=== PATIENT | female | born 1960 | race Caucasian/White ===

== ENCOUNTER 2017-01-12 10:45 | Outpatient (CLI) | payer BC ==
[~2017-01-12] VITALS: Ht 174 cm; Wt 68.9 kg
--- OUTSIDE RECORDS SUMMARY | 2017-01-12 10:48 | XMS REPORT | Clinical Summary ---
Author Author Admin, E Organization [facility] Address Unknown Phone Allergies, Adverse Reactions, Alerts Allergy Name Reaction Description Start Date Severity Status Provider SULFA Moderate Active Angela Pool PA PENICILLIN Moderate Active Angela Pool PA Conditions or Problems Problem Name Problem Code Onset Date Status Entry Date Provider Comment Standard Description Annotate HYPOTHYROIDISM 244.9 Active Angela Pool PA Unspecified hypothyroidism PELVIC PAIN, ACUTE 789.09 Resolved Angela Pool PA Abdominal pain, other specified site; multiple sites ROUTINE GYNECOLOGICAL EXAMINATION V72.31 Resolved Angela Pool PA Routine gynecological examination INSOMNIA 780.52 Active Angela Pool PA Insomnia, unspecified ELBOW PAIN, LEFT 719.42 Resolved Angela Pool PA Pain in joint involving upper arm OTHER SCREENING BREAST EXAMINATION V76.19 Resolved Angela Pool PA Other screening breast examination DYSURIA 788.1 Resolved Angela Pool PA Dysuria SEBORRHEIC KERATOSIS, INFLAMED 702.11 Active Angela Pool PA Inflamed seborrheic keratosis LEUKOPENIA, MILD 288.50 Resolved Angela Pool PA Leukocytopenia, unspecified Other dermatitis due to solar radiation 692.79 Active Angela Pool PA Other dermatitis due to solar radiation PELVIC PAIN, ACUTE ICD-789.09 Inactive Angela Pool PA ROUTINE GYNECOLOGICAL EXAMINATION ICD-V72.31 Inactive Angela Pool PA ELBOW PAIN, LEFT ICD-719.42 Inactive Angela Pool PA OTHER SCREENING BREAST EXAMINATION ICD-V76.19 Inactive Angela Pool PA DYSURIA ICD-788.1 Inactive Angela Pool PA LEUKOPENIA, MILD ICD-288.50 Inactive Angela Pool PA Medication List Medication Instructions Start Date Stop Date Generic Name NDC Status Provider Patient Instruction RETIN-A 0.025 % CREA apply to face at bedtime as needed TRETINOIN 90344148326 Active Angela [place] KIRBY Active EPIQUIN MICRO 4 % CREA apply at bedtime until desired effect obtained. Wear sunscreen HYDROQUINONE MICROSPHERES 51125692340 [facility] Active CIPRO 250 MG TABS take one tab po bid x 3 days CIPROFLOXACIN HCL 98790943788 No Longer Active [facility] PA Active SYNTHROID 175 MCG TABS take one tab po daily LEVOTHYROXINE SODIUM 49205943117 Active [facility] KIRBY Active MOBIC 15 MG TABS take one tab po daily MELOXICAM 90296641207 No Longer Active [facility] KIRBY Active RESTORIL 15 MG CAPS TAKE 1-2 CAPSULES AT H.S TEMAZEPAM 74131175645 Active Rehan Padilla MD Active MOBIC 15 MG TABS take one tab po daily MOBIC 15 MG TABS 803731 MELOXICAM Inactive CIPRO 250 MG TABS take one tab po bid x 3 days CIPRO 250 MG TABS 542449 CIPROFLOXACIN HCL Inactive Vital Signs Date Name Value Unit Range Description blood pressure, diastolic 59 mm[Hg] BP gilbert blood pressure, systolic 119 mm[Hg] BP sys height E&M 152 [in_us] Bdy height pulse rate E&M 66 /min Heart rate temperature E&M 97.8 [degF] Body temperature blood pressure, diastolic 78 mm[Hg] BP gilbert blood pressure, systolic 110 mm[Hg] BP sys height E&M 69 [in_us] Bdy height pulse rate E&M 70 /min Heart rate temperature E&M 98.3 [degF] Body temperature weight E&M 155 [lb_av] Weight Measured blood pressure, diastolic 76 mm[Hg] BP gilbert blood pressure, systolic 118 mm[Hg] BP sys height E&M 69 [in_us] Bdy height pulse rate E&M 69 /min Heart rate temperature E&M 97.2 [degF] Body temperature weight E&M 153 [lb_av] Weight Measured Diagnostic Results Date Name Value Unit Range Description Lab Report: CBC, Comp. Metabolic Panel, Thyroid Stimulating Hormone (L), ... - Chemistry sodium, serum 134 mmol/L 385-397 6550/06/14 potassium, serum 4.6 mmol/L 3.5-5.2 chloride, serum 100 mmol/L 98-107 carbon dioxide, venous blood 30.5 mmol/L 21.0-32.0 blood glucose 73 mg/dL 65-110 urea nitrogen, blood 14 mg/dL 7-18 creatinine, serum 1.00 mg/dL 0.60-1.30 alanine aminotransferase (SGPT), serum 38 U/L 12-78 aspartate aminotransferase (SGOT), serum 30 U/L 15-37 alkaline phosphatase, serum 100 U/L 50-136 calcium, serum 9.2 mg/dL 8.5-10.1 bilirubin, serum, total 0.36 mg/dL 0.00-1.00 thyroid stimulating hormone, serum 4410 u[iU]/mL Units converted. See lab report for original value. thyroxine, serum, free 0.96 ng/dL 0.76-1.46 Lab Report: CBC, Comp. Metabolic Panel, Thyroid Stimulating Hormone (L), ... - Hematology leukocyte count, blood 4.2 UL 10*3/mm3 4.6-10.2 erythrocyte (RBC) count 4.43 UL 10*6/mm3 4.04-5.48 hemoglobin, blood 13.4 g/dL 12.0-16.0 hematocrit, blood 41.4 % 36.0-46.0 mean corpuscular volume, RBC 93 fL 80-97 mean corpuscular hemoglobin, RBC 30.2 pg 27.0-31.2 mean corpuscular hemoglobin concentration, RBC 32.3 G/DL % 31.8- 35.4 red blood cell distribution width 14.5 % 11.6-14.8 platelet count 132 UL 10*3/mm3 142-424 Lab Report: CBC, Thyroid Stimulating Hormone (L), Free Thyroxine (L) - Chemistry thyroid stimulating hormone, serum 120 u[iU]/mL Units converted. See lab report for original value. thyroxine, serum, free 1.31 ng/dL 0.76-1.46 Lab Report: CBC, Thyroid Stimulating Hormone (L), Free Thyroxine (L) - Hematology leukocyte count, blood 4.9 10^3/MM^3 10*3/mm3 4.6-10.2 erythrocyte (RBC) count 4.18 10^6/MM^3 10*6/mm3 4.04-5.48 hemoglobin, blood 12.8 g/dL 12.0-16.0 hematocrit, blood 39.6 % 36.0-46.0 mean corpuscular volume, RBC 95 fL 80-97 mean corpuscular hemoglobin, RBC 30.7 pg 27.0-31.2 mean corpuscular hemoglobin concentration, RBC 32.4 G/DL % 31.8- 35.4 red blood cell distribution width 14.1 % 11.6-14.8 platelet count 311 10^3/MM^3 10*3/mm3 142-424 Office Visit: Annual GERIATRICIAN Exam - Chemistry RBC, urine, dipstick negative protein, total urine random negative mg/dL Office Visit: Annual GERIATRICIAN Exam - Urinalysis pH, urine, semiquantitative 5 specific gravity, urine 1.000 urinalysis, routine Clean Catch ketones, urine, by test strip negative bilirubin, urine negative glucose, urine, semiquantitative negative urine color yellow appearance, urine clear leukocyte esterase, urine, by dipstick negative nitrite, urine, semiquantitative negative urobilinogen, urine, semiquantitative (dipstick) 0.2 protein, urine, semiquantitative (dipstick) negative Encounters Code Encounter Date Provider Facility CPT-64628 Level 3 Est. Patient 10:16:55 CDT Angela Carson [facility] CPT-08539 Level 3 Est. Patient 09:21:59 [employer] Angela Mota [facility] CPT-13026 Level 3 Est. Patient 15:33:24 CDT Angela Mota [facility] Procedures Code Procedure Name Date Entry Date Standard Description CPT-18332 Spec Collection and Handling Fee 08:18:56 CDT CPT-77115 Venipuncture Draw Fee 08:18:56 CDT CPT-Cryo Cryotherapy 08:45:05 CDT CPT-02338 Spec Collection and Handling Fee 08:45:05 CDT CPT-32801 Venipuncture Draw Fee 08:45:05 CDT CPT-28135 Urine Dip (Floor Use Only) 08:45:05 CDT CPT-PV Prev. Care Visit 08:45:05 CDT CPT-19766 Venipuncture Draw Fee 09:30:34 CDT CPT-88717 Spec Collection and Handling Fee 09:30:34 CDT CPT-25326 Prv Med Est Pt 40-64yrs 09:30:34 CDT
[2017-01-12] MEDS ORDERED: ASCO-262 PO (11:01)
[2017-01-12] MEDS ORDERED: TEMA15CA PO (11:01)
[2017-01-12] MEDS ORDERED: CYAN250010 PO (11:01)
[2017-01-12] MEDS ORDERED: CHOL3000 PO (11:01)
[2017-01-12] MEDS ORDERED: LEVO112T55 PO (11:01)
[2017-01-12] MEDS ORDERED: POTA2TAB15 PO (11:01)
== END 2017-01-12 11:03 ==
LOC: PREOP 10:45
PROVIDERS: ATTEND Internal Medicine
DX: Z01.818 Encounter for other preprocedural examination (principal); Z12.11 Encounter for screening for malignant neoplasm of colon; K21.9 Gastro-esophageal reflux disease without esophagitis

== ENCOUNTER 2017-01-13 07:00 | Day surgery (SDC) | payer BC ==
[~2017-01-13] VITALS: Ht 174 cm; Wt 68.9 kg
[~2017-01-13 07:00] MED LIST: ASCO-262 PO; CHOL3000 PO; CYAN250010 PO; LEVO112T55 PO; POTA2TAB15 PO; TEMA15CA PO
--- NOTE | 2017-01-13 07:22 | HISTORY AND PHYSICAL ---
DICTATING PHYSICIAN: Dr. Maurice DATE OF ADMISSION: 01/13/2017 Mrs. Ac is a 56-year-old white female referred by Dr. Becker. She is referred for screening colonoscopy. She is deemed to be of higher than average risk as she reports grandmother had colon cancer diagnosed in her 70s. She also requests EGD evaluation as for the past 3 months she has been requiring daily antacid therapy for heartburn symptoms, 2 to 3 tabs daily several hours after meals. She denies nighttime symptoms. She denies melena or bright red blood per rectum. She reports that she exercises regularly and that her weight has been stable. There have been no medication changes. She has a distant past history of smoking, quit 22 years ago with less than a 10 pack-year history. She only reports occasional alcohol intake and only moderate drinking when she does. PAST MEDICAL HISTORY: 1. Significant for follicular carcinoma of thyroid diagnosed in 1989. She is status post thyroidectomy and she also underwent I-131 ablation. 2. She had a right oophorectomy which turned out to be benign adenoma. Parents are still living she believes. One she believes has had colon polyps in the 70s with one grandmother who had colon cancer in her 70s. She is not aware of any other family history of malignancy. SOCIAL HISTORY: She works for [employer] in [employer] department with the above smoking and drinking history. MEDICATIONS: 1. She takes L-thyroxine 112 mcg daily. 2. Temazepam 15 mg at bedtime p.r.n. insomnia. 3. Multiple vitamins daily. 4. OTC potassium gluconate 550 mg. 5. Vitamin D 3000 units daily. 6. Vitamin C 500 mg daily. 7. B12 100 mcg daily ALLERGIES: She reports allergies involving rash to PENICILLIN and SULFA. PHYSICAL EXAMINATION: Reveals normal weight white female at 155 pounds. Blood pressure 118/78. HEENT EXAMINATION: Unremarkable. She is a Mallampati class II oropharyngeal configuration. NECK: Reveals no JVD, adenopathy or bruits. CHEST: Clear. CV: Reveals regular rate and rhythm without murmur, S3 or S4. ABDOMEN: Soft, supple without masses, organomegaly or tenderness. EXTREMITIES: Reveal no cyanosis, clubbing, or edema. ASSESSMENT: The patient was set-up for screening colonoscopy and diagnostic EGD due to history of reflux on 01/13. Prep instructions with the Silver-prep kit were given and questions were answered. I thank you for the referral was pleasant lady. Sincerely, Chai Maurice Job ID: [id number] Dictated Date: 01/10/2017 19:41:00 Anesthesiologist Date: 01/11/2017 09:24:20/[email or web address]
[2017-01-13] MEDS ORDERED: NALOXONE 0.4 MG/ML 1 ML (NARCAN) VIAL IVP PRN (07:45)
[2017-01-13] MEDS ORDERED: FLUMAZENIL (ROMAZICON) 0.1 MG/ML 5 ML VIAL INJ PRN (07:45)
[2017-01-13] MEDS ORDERED: HURRICAINE EXT TUBE (BENZOCAINE) XX PRN (07:45)
[2017-01-13] MEDS ORDERED: 1/2 NS IV SOLUTION 1,000 ML IV STA (07:45)
[2017-01-13 08:01] VITALS: BP 115/92
--- NOTE | 2017-01-13 08:12 | Pre-Op Note & Conscious Sedat ---
Pre-Operative Progress Note H&P Reviewed The H&P was reviewed, patient examined and no changes noted. Date H&P Reviewed: Jan 13, 2017 Time H&P Reviewed: 08:11 Conscious Sedation Pre-Proced ASA Class: 1 Airway Mallampati Classification: ([place] appropriate class) I. II. III, IV Lungs Heart ASA score ASA 1: a normal healthy patient ASA 2: a patient with a mild systemic disease (mid diabetes, controlled hypertension, obesity ASA 3: a patient with a severe systemic disease that limits activity (angina , COPD, prior Myocardial infarction) ASA 4: a patient with an incapacitating disease that is a constant threat to life (CHF, renal failure) ASA 5: a moribund patient not expected to survive 24 hrs. (ruptured aneurysm) ASA 6: a declared brain patient whose organs are being harvested. For emergent operations, add the letter E after the classification Grade 2 Sedation Plan: Analgesia, Amnesia, Plan communicated to team members, Discussed options with patient/fam, Discussed risks with patient/fam Note The patient is an appropriate candidate to undergo the planned procedure, sedation, and anesthesia. The patient immediately re-assessed prior to indication. OMAR ROBLES MD Jan 13, 2017 08:12
[2017-01-13] MEDS ORDERED: LIDOCAINE JELLY 2% (XYLOCAINE) 5 ML TUBE ONE (08:52)
[2017-01-13] MEDS ORDERED: MIDAZOLAM 2 MG/2 ML (VERSED) VIAL ONE ×4 (08:52→09:32)
[2017-01-13] MEDS ORDERED: fentaNYL INJECTION 100 MCG/2 ML AMP ONE ×2 (08:52)
[2017-01-13] MEDS: fentaNYL INJECTION 100 MCG/2 ML AMP IVP PRN ×3 (09:00→09:31)
[2017-01-13] MEDS: MIDAZOLAM 2 MG/2 ML (VERSED) VIAL IVP PRN ×4 (09:15→09:50)
[2017-01-13] MEDS: LIDOCAINE JELLY 2% (XYLOCAINE) 5 ML TUBE MM PRN ×2 (09:20→09:52)
[2017-01-13] MEDS ORDERED: HURRICAINE EXT TUBE (BENZOCAINE) ONE (09:43)
[2017-01-13] MEDS ORDERED: ONDANSETRON 4 MG/2 ML (SDV) Z0FRAN ONE (10:02)
[2017-01-13 10:20] VITALS: BP_SYST 112; BP_DIAS 76; BP_DIAS 78
[2017-01-13 10:50] VITALS: BP 118/76
[2017-01-13 12:00] VITALS: BP 118/76
[2017-01-13 12:55] VITALS: BP 118/72
--- NOTE | 2017-01-15 22:40 | PROCEDURE REPORT ---
PROCEDURE PHYSICIAN: OMAR ROBLES DATE OF PROCEDURE: 01/13/2017 COLONOSCOPY AND EGD SUMMARY: REQUESTING PHYSICIAN: Dr. Becker The patient underwent screening colonoscopy and diagnostic EGD. The patient reports that for the past 3 or 4 months she has been requiring antacid usage 2 to 3 times daily for reflux sounding symptoms throughout the day. She predominantly she will have nighttime symptoms if she eats too close to bedtime. COLONOSCOPY: The patient was placed in left lateral decubitus position. Prior to undergoing colonoscopy, digital rectal evaluation was performed. Anal sphincter tone was normal and the perianal reflex was intact. No digital abnormalities were noted with digital inspection of the anal canal or distal rectal vault. The colonoscope was then inserted into the rectum and under direct visualization, advanced to the cecum. The cecum was identified by identification of the ileocecal valve and cecal strap. Photographic documentation was obtained. Careful inspection was made as the colonoscope was withdrawn. FINDINGS: There was no evidence for internal or external hemorrhoids and the rectum was unremarkable. Present in the proximal sigmoid colon, was a diminutive hyperplastic appearing polyp that was biopsied and ablated, and submitted for histopathology with no subsequent blood loss. No evidence for diverticular disease was noted. The descending colon, splenic flexure, transverse colon, hepatic flexure, ascending colon and cecum were unremarkable with no evidence for neoplasia being identified. ASSESSMENT: One diminutive hyperplastic appearing polyp was biopsied and ablated noted in the proximal sigmoid colon. There was no subsequent blood loss. The patient was reassured. Advocation for consideration for repeat screening colonoscopy in 10 years was discussed. We then proceeded with upper endoscopy. EGD: The endoscope was inserted into the oral cavity and under direct visualization, the esophagus was intubated. The scope was passed down the esophagus, through the stomach, and into the second portion of the duodenum. A careful inspection was made as the endoscope was withdrawn. The patient tolerated the procedure well. FINDINGS: The proximal and midesophagus were unremarkable. The Z line was proximally placed secondary to small to moderate size hiatal hernia. It was noted at 36 cm from the incisal orifice. Photographic documentation was obtained. There was no evidence for erosive esophagitis or Cary's change. The cardia and fundus of the stomach was unremarkable. Mild antral erythema was noted. A biopsy was obtained and submitted for Helicobacter. The pylorus, the pyloric channel, the duodenal bulb, and second portion duodenum were unremarkable to visual inspection. No evidence for peptic ulcer disease was noted. Retroflex views of the cardia were unremarkable. ASSESSMENT: Small to moderate size hiatal hernia is present, without evidence for erosive esophagitis. Mild antral erythema was noted. A biopsy was obtained and submitted for histopathology and Helicobacter evaluation. I discussed the addition of H2-rupinder therapy. Considering that there is no evidence for erosive esophagitis, did not recommend proton pump inhibitor therapy. Nonmedication reflux measures were discussed as well. I thank you for the referral of this pleasant lady. Sincerely, Job ID: [id number] Dictated Date: 01/13/2017 12:06:22 [employer] Date: 01/15/2017 22:30:40 / artur
== END 2017-01-13 12:00 | disposition home or self-care (01) ==
LOC: ENDO 07:00
PROVIDERS: ATTEND Internal Medicine
DX: Z12.11 Encounter for screening for malignant neoplasm of colon (principal); K63.5 Polyp of colon; K21.9 Gastro-esophageal reflux disease without esophagitis; K44.9 Diaphragmatic hernia without obstruction or gangrene
CPT/HCPCS: 88305